=== PATIENT | female | born 1980 | race Caucasian/White ===

== ENCOUNTER → 2016-09-09 | Outpatient (REF) | payer OTHER, BC | LOC: M LAB REF 20:32 | PROVIDERS: ATTEND Physician Assistant | DX: J02.9 Acute pharyngitis, unspecified (principal) ==

== ENCOUNTER → 2017-04-07 | Outpatient (CLI) | payer OTHER, BC ==
[~2017-04-07] MED LIST: BACL10TA2; CARV6.25 PO; CIPR-249 PO; COPA1INJ; IBUP80TA PO; IBUPOTC PO; ROBA500T PO
--- NOTE | 2017-04-08 02:56 | REP ---
Clinical: Trauma. Technique: AP, lateral views right forearm . Findings: The osseous structures and joint spaces are intact and normal. There is no evidence for acute fracture or dislocation. Surrounding soft tissues are unremarkable. No subcutaneous emphysema or radiodense foreign body. Impression: Normal right forearm series . No acute fracture or dislocation. Signed by Shine Quezada MD 04/08/2017 02:48 A
== END ==
LOC: M ADAMS 16:41
PROVIDERS: ATTEND Physician Assistant
DX: S50.11XA Contusion of right forearm, initial encounter (principal); W18.30XA Fall on same level, unspecified, initial encounter; Y92.009 Unspecified place in unspecified non-institutional (private) residence as the place of occurrence of the external cause

== ENCOUNTER 2017-05-01 16:43 | Emergency (ER) | payer OTHER, BC ==
[~2017-05-01] VITALS: Ht 170.2 cm; Wt 76.4 kg
[~2017-05-01 16:43] MED LIST changes: -CIPR-249 PO
[2017-05-01 17:53] VITALS: BP 140/100
[2017-05-01] MEDS ORDERED: CIPR-249 PO (18:09)
[2017-05-01] MEDS ORDERED: ROBA500T PO (18:14)
[2017-05-01] MEDS ORDERED: CIPROFLOXACIN 500 MG TAB PO ONE (18:15)
== END 2017-05-01 18:30 | disposition home or self-care (01) ==
LOC: M ED 16:43
DX: N39.0 Urinary tract infection, site not specified (principal); S16.1XXD Strain of muscle, fascia and tendon at neck level, subsequent encounter; W19.XXXD Unspecified fall, subsequent encounter; Y92.89 Other specified places as the place of occurrence of the external cause; Y93.89 Activity, other specified; Y99.9 Unspecified external cause status

== ENCOUNTER → 2017-12-27 | Outpatient (REF) | payer OTHER, BC ==
[2017-12-27 16:15] LABS: C REACTIVE PROTEIN QUANTITATIV < 0.30 MG/DL (0.00-0.30)
[2017-12-27 16:23] LABS: PLATELET COUNT, AUTOMATED 382 10^3/uL (150-450)
[2017-12-27 16:27] LABS: INR 0.97; PARTIAL THROMBOPLASTIN TIME 28.2 SECONDS (25.4-37.6)
[2017-12-27 17:31] LABS: ERYTHROCYTE SEDIMENTATION RATE 8 mm/hr (0-20)
[2018-01-05 00:20] LABS: HLA-B27 Negative (.)
== END ==
LOC: M LABDRAW1 15:44
DX: Z01.812 Encounter for preprocedural laboratory examination (principal); M47.22 Other spondylosis with radiculopathy, cervical region
CPT/HCPCS: 86140

== ENCOUNTER → 2018-02-22 | Outpatient (REF) | payer OTHER, BC ==
[2018-02-22 17:40] LABS: CORTISOL BASELINE 8.6 UG/DL (4.3-22.4)
[2018-02-22 17:45] LABS: ALBUMIN 4.1 GM/DL (3.2-5.2); ALBUMIN/GLOBULIN RATIO 1.32 (1.00-1.93); ALKALINE PHOSPHATASE 60 U/L (45-117); ALT/SGPT 16 U/L (12-78); ANION GAP 10 MEQ/L (8-16); AST/SGOT 11 U/L (7-37); BILIRUBIN,TOTAL 0.5 MG/DL (0.2-1.0); BLOOD UREA NITROGEN 11 MG/DL (7-18); CALCIUM LEVEL 9.2 MG/DL (8.5-10.1); CARBON DIOXIDE LEVEL 27 MEQ/L (21-32); CHLORIDE LEVEL 105 MEQ/L (98-107); CREATININE FOR GFR 0.77 MG/DL (0.55-1.30); FREE T4 0.92 NG/DL (0.76-1.46); GLOMERULAR FILTRATION RATE > 60.0 (>58); GLUCOSE, FASTING 88 MG/DL (70-100); POTASSIUM SERUM 4.4 MEQ/L (3.5-5.1); SODIUM LEVEL 142 MEQ/L (136-145); THYROID STIMULATING HORMONE 0.766 uIU/ML (0.358-3.740); TOTAL PROTEIN 7.2 GM/DL (6.4-8.2)
[2018-03-02 00:07] LABS: ESTRADIOL 585.2 pg/mL (.); ESTRONE SERUM 413 pg/mL (.); HUMAN GROWTH HORMONE 1.4 ng/mL (0.0-10.0)
== END ==
LOC: M LABDRAW1 15:10
DX: F07.81 Postconcussional syndrome (principal)

== ENCOUNTER → 2018-02-22 | Outpatient (REF) | payer OTHER, BC ==
[2018-02-22 16:45] LABS: CREATININE FOR GFR 0.78 MG/DL (0.55-1.30); GLOMERULAR FILTRATION RATE > 60.0 (>58)
[2018-02-22 16:45] LABS: BLOOD UREA NITROGEN 11 MG/DL (7-18)
== END ==
LOC: M LABDRAW1 15:12
DX: M50.320 Other cervical disc degeneration, mid-cervical region, unspecified level (principal)

== ENCOUNTER → 2018-06-07 | Outpatient (REF) | payer OTHER, BC ==
[~2018-06-07] MED LIST changes: +CIPR-249 PO
[2018-06-07 12:21] LABS: INR 0.96; PROTHROMBIN TIME 12.9 SECONDS (12.1-14.4)
== END ==
LOC: M LABDRAW1 11:27
PROVIDERS: ATTEND Physician Assistant
DX: Z01.812 Encounter for preprocedural laboratory examination (principal); Z79.01 Long term (current) use of anticoagulants

== ENCOUNTER → 2019-02-27 | Outpatient (REF) | payer OTHER, BC ==
[2019-02-27 13:00] LABS: HEMATOCRIT 39.4 % (36.0-47.0); HEMOGLOBIN 13.1 g/dl (12.0-15.5); MEAN CORPUSCULAR HEMOGLOBIN 32.8 pg (27.0-33.0); MEAN CORPUSCULAR HGB CONC 33.2 g/dl (32.0-36.5); MEAN CORPUSCULAR VOLUME 98.7 fl (80.0-96.0); PLATELET COUNT, AUTOMATED 350 10^3/uL (150-450); RED BLOOD COUNT 3.99 10^6/uL (4.00-5.40); WHITE BLOOD COUNT 5.3 10^3/uL (4.0-10.0)
[2019-02-27 13:22] LABS: ALBUMIN 3.9 GM/DL (3.2-5.2); ALT/SGPT 21 U/L (12-78); BILIRUBIN,TOTAL 0.6 MG/DL (0.2-1.0); BLOOD UREA NITROGEN 16 MG/DL (7-18); CARBON DIOXIDE LEVEL 26 MEQ/L (21-32); CHLORIDE LEVEL 106 MEQ/L (98-107); CHOLESTEROL LEVEL 217 MG/DL (<200); CHOLESTEROL RISK RATIO 2.855 (<5); CREATININE FOR GFR 0.68 MG/DL (0.55-1.30); GLOMERULAR FILTRATION RATE > 60.0 (>58); GLUCOSE, FASTING 92 MG/DL (70-100); HDL CHOLESTEROL 76 MG/DL (>40); LDL CHOLESTEROL 110 MG/DL (<100); NON-HDL-C 141 MG/DL; POTASSIUM SERUM 4.5 MEQ/L (3.5-5.1); SODIUM LEVEL 140 MEQ/L (136-145); TOTAL PROTEIN 6.9 GM/DL (6.4-8.2); TRIGLYCERIDES LEVEL 156 MG/DL (<150)
[2019-02-27 13:25] LABS: TOTAL 25(OH) VITAMIN D 32.7 NG/ML (30.0-100.0)
[2019-02-27 13:34] LABS: HEMOGLOBIN A1c 5.3 %
== END ==
LOC: M LABDRAW1 09:58
PROVIDERS: ATTEND Family Medicine
DX: I10 Essential (primary) hypertension (principal); E03.9 Hypothyroidism, unspecified

== ENCOUNTER → 2019-02-27 | Outpatient (CLI) | payer BC ==
--- NOTE | 2019-02-27 12:45 | REP ---
Chest, two views Indication: Hypertension. Comparison: Two-view chest of 10/23/2010. Findings: The cardiomediastinal silhouette is normal in appearance for size. Pulmonary vascularity is normal. The lungs are clear. The costophrenic angles are sharp. The osseous structures are intact. Impression: No acute cardiopulmonary process. Electronically Signed by Giuliana Padron MD 02/27/2019 12:36 P
--- NOTE | 2019-02-27 18:24 | ECGEPIP ---
[facility] Test Date: 2019-02-27 Pat Name: BONIFACIO JIMENES Department: Room: - Gender: Female [employer] Res[employer]cher: JACI : 1980 Requested By: Evy Weiss Order Number: [id number] Reading MD: Kal Myrick Measurements Intervals [place] Rate: 70 P: 52 [place]: 168 QRS: 48 QRSD: 85 T: 38 QT: 404 QTc: 437 Interpretive Statements SINUS RHYTHM Normal Electronically Signed on 02-27-2019 18:24:54 EDT by Kal Myrick
== END ==
LOC: M EKG 11:49
PROVIDERS: ATTEND Family Medicine
DX: I10 Essential (primary) hypertension (principal)

== ENCOUNTER → 2019-03-26 | Outpatient (CLI) | payer BC ==
[2019-03-26 09:09] LABS: HEMATOCRIT 40.4 % (36.0-47.0); HEMOGLOBIN 13.6 g/dl (12.0-15.5); MEAN CORPUSCULAR HEMOGLOBIN 34.1 pg (27.0-33.0); MEAN CORPUSCULAR HGB CONC 33.7 g/dl (32.0-36.5); MEAN CORPUSCULAR VOLUME 101.3 fl (80.0-96.0); PLATELET COUNT, AUTOMATED 364 10^3/uL (150-450); RED BLOOD COUNT 3.99 10^6/uL (4.00-5.40); WHITE BLOOD COUNT 5.9 10^3/uL (4.0-10.0)
[2019-03-26 09:31] LABS: HEMOGLOBIN A1c 5.3 %
[2019-03-26 09:50] LABS: ALBUMIN 3.8 GM/DL (3.2-5.2); ALT/SGPT 33 U/L (12-78); BILIRUBIN,TOTAL 0.5 MG/DL (0.2-1.0); BLOOD UREA NITROGEN 14 MG/DL (7-18); CARBON DIOXIDE LEVEL 28 MEQ/L (21-32); CHLORIDE LEVEL 107 MEQ/L (98-107); CHOLESTEROL LEVEL 191 MG/DL (<200); CHOLESTEROL RISK RATIO 2.984 (<5); GLOMERULAR FILTRATION RATE > 60.0 (>58); GLUCOSE, FASTING 92 MG/DL (70-100); HDL CHOLESTEROL 64 MG/DL (>40); LDL CHOLESTEROL 106 MG/DL (<100); NON-HDL-C 127 MG/DL; POTASSIUM SERUM 4.4 MEQ/L (3.5-5.1); SODIUM LEVEL 140 MEQ/L (136-145); TOTAL PROTEIN 7.1 GM/DL (6.4-8.2); TRIGLYCERIDES LEVEL 105 MG/DL (<150)
== END ==
LOC: M LAB 08:33
PROVIDERS: ATTEND Family Medicine
DX: I10 Essential (primary) hypertension (principal)

== ENCOUNTER → 2019-08-15 | Outpatient (REF) | payer OTHER, BC | LOC: M PLALAB 07:24 | PROVIDERS: ATTEND Nurse Practitioner Women's Health | DX: Z12.4 Encounter for screening for malignant neoplasm of cervix (principal) ==

== ENCOUNTER → 2020-01-30 | Outpatient (REF) | payer BC ==
[2020-03-19 20:13] LABS: BLOOD UREA NITROGEN 15 MG/DL (7-18); CREATININE FOR GFR 0.83 MG/DL (0.55-1.30); GLOMERULAR FILTRATION RATE > 60.0 (>58)
== END ==
LOC: M LABDRWAD 10:41
PROVIDERS: ATTEND Physician Assistant
DX: M47.894 Other spondylosis, thoracic region (principal)

== ENCOUNTER → 2020-05-01 | Outpatient (CLI) | payer BC ==
[2020-05-01 08:49] LABS: HEMATOCRIT 40.5 % (36.0-47.0); HEMOGLOBIN 13.1 g/dl (12.0-15.5); MEAN CORPUSCULAR HEMOGLOBIN 32.5 pg (27.0-33.0); MEAN CORPUSCULAR HGB CONC 32.3 g/dl (32.0-36.5); MEAN CORPUSCULAR VOLUME 100.5 fl (80.0-96.0); PLATELET COUNT, AUTOMATED 367 10^3/uL (150-450); RED BLOOD COUNT 4.03 10^6/uL (4.00-5.40); WHITE BLOOD COUNT 5.7 10^3/uL (4.0-10.0)
[2020-05-01 10:40] LABS: HEMOGLOBIN A1c 5.2 %
[2020-05-01 12:33] LABS: ALBUMIN 3.9 GM/DL (3.2-5.2); ALT/SGPT 19 U/L (12-78); BILIRUBIN,TOTAL 0.4 MG/DL (0.2-1.0); CALCIUM LEVEL 9.1 MG/DL (8.5-10.1); CARBON DIOXIDE LEVEL 30 MEQ/L (21-32); CHLORIDE LEVEL 107 MEQ/L (98-107); CHOLESTEROL LEVEL 212 MG/DL (<200); CHOLESTEROL RISK RATIO 3.533 (<5); CREATININE FOR GFR 0.77 MG/DL (0.55-1.30); GLOMERULAR FILTRATION RATE > 60.0 (>58); GLUCOSE, FASTING 88 MG/DL (70-100); HDL CHOLESTEROL 60 MG/DL (>40); IRON (FE) 97 UG/DL (50-170); LDL CHOLESTEROL 121 MG/DL (<100); NON-HDL-C 152 MG/DL; PERCENT SATURATION 34.3 % (13.2-45.0); POTASSIUM SERUM 4.6 MEQ/L (3.5-5.1); SODIUM LEVEL 142 MEQ/L (136-145); THYROID STIMULATING HORMONE 0.965 uIU/ML (0.358-3.740); TOTAL 25(OH) VITAMIN D 30.4 NG/ML (30.0-100.0); TOTAL IRON BINDING CAPACITY 283 UG/DL (250-450); TOTAL PROTEIN 6.8 GM/DL (6.4-8.2); TRIGLYCERIDES LEVEL 154 MG/DL (<150); VITAMIN B12 LEVEL 324 PG/ML
[2020-05-01 12:41] LABS: BLOOD UREA NITROGEN 15 MG/DL (7-18)
[2020-05-01 12:54] LABS: FOLATE 14.4 NG/ML
== END ==
LOC: M LAB 08:00
PROVIDERS: ATTEND Family Medicine
DX: D64.9 Anemia, unspecified (principal); R53.83 Other fatigue; E03.9 Hypothyroidism, unspecified

== ENCOUNTER → 2020-09-24 | Outpatient (CLI) | payer BC ==
--- NOTE | 2020-09-24 16:33 | REP ---
INDICATION: LBP, SPONDYLOSIS T REGION. COMPARISON: None. TECHNIQUE: Sagittal T1, T2, stir images of the lumbar spine obtained. Axial T1 and T2 weighted images obtained. FINDINGS: There is only mild multilevel degenerative disc disease with loss of disc height and disc desiccation. Vertebral heights are overall preserved. On the sagittal T2 weighted images, no malalignments. The canal remains widely patent. Conus ends normally at L1 level. On the STIR images, no significant stir signal abnormality to suggest soft tissue or ligamentous injury. On the review of axial images, At L1-2 and L2-3 no significant canal or foraminal narrowing At L3-4 and L4-5 mild disc bulging with minimal canal narrowing and mild bilateral foraminal narrowing. At L5-S1 slightly greater disc degeneration within annular tear on the left. The disc and annular tear project into the left neural foramen with [id number] foraminal narrowing. IMPRESSION: Only mild multilevel degenerative disc disease. No limiting canal stenosis. No high-grade foraminal stenosis. At L5-S1 slightly greater disc degeneration within annular tear on the left. The disc and annular tear project into the left neural foramen with [id number] foraminal narrowing. <Electronically signed by Deshaun Cole > 09/24/20 [id number]
--- NOTE | 2020-09-24 16:36 | REP ---
INDICATION: LBP, SPONDYLOSIS T REGION. COMPARISON: None. TECHNIQUE: Sagittal T1, T2, stir images of the thoracic spine obtained. Axial T1 and T2 weighted images obtained. FINDINGS: On the sagittal T2 weighted images, there is only [id number] multilevel degenerative disc disease with loss of disc height and disc desiccation seen diffusely throughout the thoracic spine. Vertebral heights are overall preserved. No malalignments. On the sagittal T2 weighted images, no significant canal stenosis. Thoracic cord appears normal in its course, caliber and signal characteristics. On the review of axial images, no evidence of significant canal or foraminal stenosis or disc herniation. On the sagittal STIR images, no significant stir signal abnormality to suggest soft tissue or ligamentous injury. IMPRESSION: No acute findings. Normal thoracic spine. <Electronically signed by Deshaun Cole > 09/24/20 [id number]
== END ==
LOC: M PLARAD 13:52
PROVIDERS: ATTEND Physician Assistant
DX: M54.5 Low back pain (principal); M47.894 Other spondylosis, thoracic region

== ENCOUNTER → 2021-02-09 | Outpatient (CLI) | payer BC ==
[2021-02-09 08:44] LABS: HEMATOCRIT 40.1 % (36.0-47.0); HEMOGLOBIN 13.3 g/dl (12.0-15.5); MEAN CORPUSCULAR HEMOGLOBIN 33.5 pg (27.0-33.0); MEAN CORPUSCULAR HGB CONC 33.2 g/dl (32.0-36.5); PLATELET COUNT, AUTOMATED 356 10^3/uL (150-450); RED BLOOD COUNT 3.97 10^6/uL (4.00-5.40); WHITE BLOOD COUNT 5.6 10^3/uL (4.0-10.0)
[2021-02-09 09:25] LABS: ALBUMIN 3.6 GM/DL (3.2-5.2); ALT/SGPT 25 U/L (12-78); BILIRUBIN,TOTAL 0.2 MG/DL (0.2-1.0); BLOOD UREA NITROGEN 17 MG/DL (7-18); CALCIUM LEVEL 8.8 MG/DL (8.5-10.1); CARBON DIOXIDE LEVEL 27 MEQ/L (21-32); CHLORIDE LEVEL 111 MEQ/L (98-107); CHOLESTEROL LEVEL 214 MG/DL (<200); CHOLESTEROL RISK RATIO 3.689 (<5); CREATININE FOR GFR 0.73 MG/DL (0.55-1.30); GLOMERULAR FILTRATION RATE > 60.0 (>58); GLUCOSE, FASTING 90 MG/DL (70-100); HDL CHOLESTEROL 58 MG/DL (>40); LDL CHOLESTEROL 133 MG/DL (<100); NON-HDL-C 156 MG/DL; POTASSIUM SERUM 4.7 MEQ/L (3.5-5.1); SODIUM LEVEL 142 MEQ/L (136-145); THYROID STIMULATING HORMONE 0.748 uIU/ML (0.358-3.740); TOTAL PROTEIN 6.7 GM/DL (6.4-8.2); TRIGLYCERIDES LEVEL 116 MG/DL (<150)
[2021-02-09 11:08] LABS: HEMOGLOBIN A1c 5.1 %
[2021-02-09 12:32] LABS: LUTEINIZING HORMONE 3.2 mIU/mL
[2021-02-09 12:33] LABS: ESTRADIOL 23.1 PG/ML; FOLLICLE STIMULATING HORMONE 6.9 mIU/mL
== END ==
LOC: M LAB 08:19
PROVIDERS: ATTEND Family Medicine
DX: D64.9 Anemia, unspecified (principal); R53.83 Other fatigue; E03.9 Hypothyroidism, unspecified

== ENCOUNTER → 2021-06-01 | Outpatient (REF) | payer BC | LOC: M LAB REF 14:02 | PROVIDERS: ATTEND Physician Assistant | DX: C44.619 Basal cell carcinoma of skin of left upper limb, including shoulder (principal) ==

== ENCOUNTER → 2021-09-25 | Outpatient (REF) | payer OTHER, BC | LOC: M SFHCDERM 17:21 | PROVIDERS: ATTEND Dermatology | DX: C44.519 Basal cell carcinoma of skin of other part of trunk (principal) ==

== ENCOUNTER → 2021-12-28 | Outpatient (CLI) | payer OTHER ==
[2021-12-28 08:49] LABS: HEMATOCRIT 38.5 % (36.0-47.0); HEMOGLOBIN 12.7 g/dl (12.0-15.5); MEAN CORPUSCULAR HEMOGLOBIN 34.4 pg (27.0-33.0); MEAN CORPUSCULAR VOLUME 104.3 fl (80.0-96.0); PLATELET COUNT, AUTOMATED 264 10^3/uL (150-450); RED BLOOD COUNT 3.69 10^6/uL (4.00-5.40); WHITE BLOOD COUNT 3.5 10^3/uL (4.0-10.0)
[2021-12-28 09:17] LABS: ALT/SGPT 42 U/L (12-78); BILIRUBIN,TOTAL 0.3 MG/DL (0.2-1.0); BLOOD UREA NITROGEN 12 MG/DL (7-18); CALCIUM LEVEL 8.4 MG/DL (8.5-10.1); CARBON DIOXIDE LEVEL 27 MEQ/L (21-32); CHLORIDE LEVEL 110 MEQ/L (98-107); GLOMERULAR FILTRATION RATE > 60.0 (>58); GLUCOSE, FASTING 91 MG/DL (70-100); POTASSIUM SERUM 4.5 MEQ/L (3.5-5.1); SODIUM LEVEL 141 MEQ/L (136-145)
[2021-12-28 09:18] LABS: ALBUMIN 3.7 GM/DL (3.2-5.2); CHOLESTEROL LEVEL 205 MG/DL (<200); CHOLESTEROL RISK RATIO 2.628 (<5); HDL CHOLESTEROL 78 MG/DL (>40); LDL CHOLESTEROL 113 MG/DL (<100); NON-HDL-C 127 MG/DL; THYROID STIMULATING HORMONE 0.922 uIU/ML (0.358-3.740); TOTAL PROTEIN 6.2 GM/DL (6.4-8.2); TRIGLYCERIDES LEVEL 69 MG/DL (<150)
[2021-12-28 10:12] LABS: HEMOGLOBIN A1c 4.7 %
[2021-12-28 12:44] LABS: TOTAL 25(OH) VITAMIN D 37.8 NG/ML (30.0-100.0)
== END ==
LOC: M LAB 08:02
PROVIDERS: ATTEND Family Medicine
DX: D64.9 Anemia, unspecified (principal); R53.83 Other fatigue

== ENCOUNTER → 2022-04-12 | Outpatient (CLI) | payer OTHER | LOC: M RAD 10:39 | PROVIDERS: ATTEND Family Medicine | DX: S09.92XA Unspecified injury of nose, initial encounter (principal) ==

== ENCOUNTER → 2022-05-18 | Outpatient (REF) | payer OTHER | LOC: M SFHCDERM 17:37 | PROVIDERS: ATTEND Physician Assistant | DX: D23.5 Other benign neoplasm of skin of trunk (principal) ==

== ENCOUNTER → 2023-02-01 | Outpatient (CLI) | payer OTHER | LOC: M LAB 09:25 | PROVIDERS: ATTEND Family Medicine | DX: M54.30 Sciatica, unspecified side (principal); Z51.81 Encounter for therapeutic drug level monitoring ==

== ENCOUNTER → 2023-02-01 | Outpatient (CLI) | payer OTHER ==
[2023-02-01 10:41] LABS: BASO # 0.1 10^3/uL (0.0-0.2); BASO % 1.4 % (0.0-1.0); EOS # 0.2 10^3/uL (0.0-0.5); EOS % 4.8 % (0.0-3.0); HEMATOCRIT 39.4 % (36.0-47.0); LYMPH % 28.5 % (24.0-44.0); MEAN CORPUSCULAR HEMOGLOBIN 33.8 pg (27.0-33.0); MEAN CORPUSCULAR VOLUME 102.3 fl (80.0-96.0); MONO # 0.3 10^3/uL (0.0-0.8); MONO % 8.8 % (2.0-8.0); NEUTROPHILS % 56.2 % (36.0-66.0); PLATELET COUNT, AUTOMATED 278 10^3/uL (150-450); RED BLOOD COUNT 3.85 10^6/uL (4.00-5.40); WHITE BLOOD COUNT 3.5 10^3/uL (4.0-10.0)
[2023-02-01 11:15] LABS: ALBUMIN 3.9 G/DL (3.2-5.2); ALKALINE PHOSPHATASE 63 U/L (46-116); ALT/SGPT 44 U/L (7.0-40); AST/SGOT 15 U/L (<34); BILIRUBIN,TOTAL 0.4 MG/DL (0.3-1.2); BLOOD UREA NITROGEN 14 MG/DL (9-23); CALCIUM LEVEL 8.7 MG/DL (8.5-10.1); CARBON DIOXIDE LEVEL 29 MMOL/L (20-31); CHLORIDE LEVEL 103 MMOL/L (98-107); GLOMERULAR FILTRATION RATE > 60.0 (>58); GLUCOSE, FASTING 68 MG/DL (60-100); POTASSIUM SERUM 4.5 MMOL/L (3.5-5.1); SODIUM LEVEL 137 MMOL/L (136-145); TOTAL PROTEIN 6.6 G/DL (5.7-8.2)
[2023-02-01 11:16] LABS: TOTAL 25(OH) VITAMIN D 29.7 NG/ML (20.0-100.0)
== END ==
LOC: M LAB 09:27
PROVIDERS: ATTEND Physician Assistant Medical
DX: G35 Multiple sclerosis (principal)

== ENCOUNTER → 2023-10-12 | Outpatient (REF) | payer OTHER ==
[2023-10-12 18:01] LABS: BASO # 0.1 10^3/uL (0.0-0.2); BASO % 1.3 % (0.0-1.0); EOS # 0.3 10^3/uL (0.0-0.5); EOS % 5.7 % (0.0-3.0); HEMATOCRIT 41.3 % (36.0-47.0); HEMOGLOBIN 13.7 g/dl (12.0-15.5); LYMPH # 2.1 10^3/uL (1.5-5.0); LYMPH % 39.2 % (24.0-44.0); MEAN CORPUSCULAR HGB CONC 33.2 g/dl (32.0-36.5); MEAN CORPUSCULAR VOLUME 102.5 fl (80.0-96.0); MONO # 0.6 10^3/uL (0.0-0.8); MONO % 10.5 % (2.0-8.0); NEUTROPHILS # 2.3 10^3/uL (1.5-8.5); NEUTROPHILS % 43.1 % (36.0-66.0); PLATELET COUNT, AUTOMATED 348 10^3/uL (150-450); RED BLOOD COUNT 4.03 10^6/uL (4.00-5.40); WHITE BLOOD COUNT 5.4 10^3/uL (4.0-10.0)
[2023-10-12 18:27] LABS: ALBUMIN 4.4 G/DL (3.2-5.2); ALKALINE PHOSPHATASE 73 U/L (46-116); ALT/SGPT 130 U/L (7.0-40); AST/SGOT 51 U/L (<34); BILIRUBIN,TOTAL 0.4 MG/DL (0.3-1.2); BLOOD UREA NITROGEN 8 MG/DL (9-23); CALCIUM LEVEL 9.6 MG/DL (8.5-10.1); CARBON DIOXIDE LEVEL 29 MMOL/L (20-31); CHLORIDE LEVEL 100 MMOL/L (98-107); CREATININE FOR GFR 0.66 MG/DL (0.55-1.30); GLOMERULAR FILTRATION RATE > 60.0 (>58); GLUCOSE, FASTING 74 MG/DL (60-100); POTASSIUM SERUM 4.4 MMOL/L (3.5-5.1); SODIUM LEVEL 136 MMOL/L (136-145); TOTAL PROTEIN 6.9 G/DL (5.7-8.2)
[2023-10-12 18:31] LABS: TOTAL 25(OH) VITAMIN D 31.9 NG/ML (20.0-100.0)
== END ==
LOC: M LABDRWAD 17:15
PROVIDERS: ATTEND Physician Assistant Medical
DX: G35 Multiple sclerosis (principal)

== ENCOUNTER → 2025-01-16 | Outpatient (CLI) | payer MEDICARE, OTHER | LOC: M PLAIMG 11:46 | PROVIDERS: ATTEND Student in an Organized Health Care Education/Training Program | DX: M54.32 Sciatica, left side (principal); N20.0 Calculus of kidney ==

== ENCOUNTER → 2025-01-30 | Outpatient (REF) | payer MEDICARE, OTHER | LOC: M SFHCPLAZ 17:54 | PROVIDERS: ATTEND Student in an Organized Health Care Education/Training Program | DX: Z12.4 Encounter for screening for malignant neoplasm of cervix (principal) ==

== ENCOUNTER → 2025-02-28 | Outpatient (CLI) | payer MEDICARE ==
[2025-02-28 13:22] LABS: BASO # 0.0 10^3/uL (0.0-0.2); BASO % 1.0 % (0.0-1.0); EOS # 0.2 10^3/uL (0.0-0.5); EOS % 4.6 % (0.0-3.0); LYMPH # 1.2 10^3/uL (1.5-5.0); LYMPH % 30.2 % (24.0-44.0); MONO # 0.6 10^3/uL (0.0-0.8); MONO % 14.1 % (2.0-8.0); NEUTROPHILS # 2.0 10^3/uL (1.5-8.5); NEUTROPHILS % 49.6 % (36.0-66.0); PLATELET COUNT, AUTOMATED 312 10^3/uL (150-450)
[2025-02-28 13:39] LABS: ESTIMATED AVERAGE GLUCOSE 103.0 MG/DL (60-110)
[2025-02-28 13:45] LABS: ALT/SGPT 17 U/L (7.0-40); AST/SGOT 14 U/L (<34); CALCIUM LEVEL 8.9 MG/DL (8.5-10.1); CARBON DIOXIDE LEVEL 26 MMOL/L (20-31); CHLORIDE LEVEL 106 MMOL/L (98-107); CHOLESTEROL LEVEL 227 MG/DL (<200); CHOLESTEROL RISK RATIO 2.62 (<5); CREATININE FOR GFR 0.66 MG/DL (0.55-1.30); GLOMERULAR FILTRATION RATE > 90.0 (>58); LDL CHOLESTEROL 123.1 MG/DL (<100); NON-HDL-C 140.5 MG/DL; POTASSIUM SERUM 4.6 MMOL/L (3.5-5.1); SODIUM LEVEL 142 MMOL/L (136-145); TRIGLYCERIDES LEVEL 87 MG/DL (<150)
== END ==
LOC: M PLALAB 11:42
PROVIDERS: ATTEND Student in an Organized Health Care Education/Training Program
DX: Z00.00 Encounter for general adult medical examination without abnormal findings (principal); M47.816 Spondylosis without myelopathy or radiculopathy, lumbar region; M79.10 Myalgia, unspecified site; Z79.891 Long term (current) use of opiate analgesic; Z79.899 Other long term (current) drug therapy

== ENCOUNTER 2025-03-13 09:37 | Outpatient (RCR) | payer MEDICARE, OTHER | END 2025-03-19 | LOC: M PT 09:37 | PROVIDERS: ATTEND Student in an Organized Health Care Education/Training Program | DX: M54.32 Sciatica, left side (principal) ==

== ENCOUNTER → 2025-03-30 | Outpatient (CLI) | payer MEDICARE, OTHER | LOC: M RAD 14:58 | PROVIDERS: ATTEND Pain Medicine Interventional Pain Medicine | DX: M47.26 Other spondylosis with radiculopathy, lumbar region (principal); M51.25 Other intervertebral disc displacement, thoracolumbar region; M48.062 Spinal stenosis, lumbar region with neurogenic claudication ==

== ENCOUNTER 2025-04-17 12:00 | Outpatient (RCR) | payer MEDICARE | END 2025-04-19 | LOC: M PT 12:00 | PROVIDERS: ATTEND Student in an Organized Health Care Education/Training Program | DX: M54.32 Sciatica, left side (principal) ==